=== PATIENT | male | born 1930 | race Caucasian/White ===

== ENCOUNTER 2016-11-21 17:32 | Emergency (ER) | payer OTHER, BC ==
[~2016-11-21] VITALS: Ht 165.1 cm; Wt 79.9 kg
[2016-11-21 18:28] LABS: CALCIUM 8.4 mg/dL (8.5-10.1); CARBON DIOXIDE 21.6 mmol/L (21-32); CHLORIDE SERUM 104 mmol/L (98-107); CREATININE SERUM 1.1 mg/dL (0.7-1.3); GLUCOSE SERUM 98 mg/dL (74-106); POTASSIUM SERUM 3.7 mmol/L (3.5-5.1); SODIUM SERUM 139 mmol/L (136-145)
[2016-11-21 18:32] LABS: BASOPHIL % 1.5 % (0-2); PLATELET COUNT 231 x10^3mcL (130-400); RED CELL DISTRIBUTION WIDTH 13.7 % (11.5-14.5)
[2016-11-21 18:34] LABS: ALBUMIN 3.7 g/dL (3.4-5.0); ALKALINE PHOSPHATASE 54 U/L (46-116); ALT/SGPT 23 U/L (16-63); AST/SGOT 20 U/L (15-37); BILIRUBIN TOTAL 0.61 mg/dL (0.20-1.00); MAGNESIUM 1.8 mg/dL (1.8-2.4); TOTAL PROTEIN, SERUM 7.2 g/dL (6.4-8.2)
[2016-11-21 20:04] VITALS: BP 137/97
== END 2016-11-21 20:04 | disposition home or self-care (01) ==
LOC: ED 17:32
PROVIDERS: Emergency Medicine
DX: G45.9 Transient cerebral ischemic attack, unspecified (principal); R03.0 Elevated blood-pressure reading, without diagnosis of hypertension; G62.9 Polyneuropathy, unspecified
CPT/HCPCS: 36415; 83880

== ENCOUNTER 2016-12-03 16:19 | Emergency (ER) | payer OTHER, BC ==
[~2016-12-03] VITALS: Ht 167.6 cm; Wt 79.0 kg
[2016-12-03 17:51] VITALS: BP 132/88
== END 2016-12-03 17:49 | disposition home or self-care (01) ==
LOC: ED 16:19
DX: I10 Essential (primary) hypertension (principal)

== ENCOUNTER 2018-02-25 16:01 | Emergency (ER) | payer OTHER, BC ==
[~2018-02-25] VITALS: Ht 167.6 cm; Wt 72.1 kg
[2018-02-25 16:36] VITALS: Ht 167.6 cm; Wt 72.1 kg
[2018-02-25 18:07] LABS: BASOPHIL % 0.5 % (0-2); PLATELET COUNT 165 x10^3mcL (130-400); RED CELL DISTRIBUTION WIDTH 13.9 % (11.5-14.5)
[2018-02-25 18:15] LABS: CALCIUM 8.7 mg/dL (8.5-10.1); CHLORIDE SERUM 104 mmol/L (98-107); CREATININE SERUM 1.2 mg/dL (0.7-1.3); GLUCOSE SERUM 98 mg/dL (74-106); SODIUM SERUM 136 mmol/L (136-145)
[2018-02-25 22:38] VITALS: BP 122/101
== END 2018-02-25 22:38 | disposition home or self-care (01) ==
LOC: ED 16:01
PROVIDERS: Emergency Medicine
DX: S20.212A Contusion of left front wall of thorax, initial encounter (principal); S63.502A Unspecified sprain of left wrist, initial encounter; I71.2 Thoracic aortic aneurysm, without rupture; E07.89 Other specified disorders of thyroid; V89.2XXA Person injured in unspecified motor-vehicle accident, traffic, initial encounter; Y93.I9 Activity, other involving external motion; Y92.89 Other specified places as the place of occurrence of the external cause; Y99.8 Other external cause status
CPT/HCPCS: 36415; 90715; Q9967